=== PATIENT | male | born 1990 ===

== ENCOUNTER 2020-07-24 17:20 | Outpatient (CLI) | payer SELFPAY | END 2020-07-24 17:21 | disposition EMS.NT | LOC: EMS 17:20 | PROVIDERS: ATTEND Surgery | DX: S09.90XA Unspecified injury of head, initial encounter (principal); R51 Headache; S50.312A Abrasion of left elbow, initial encounter; V18.0XXA Pedal cycle driver injured in noncollision transport accident in nontraffic accident, initial encounter; Y93.55 Activity, bike riding ==